=== PATIENT | female | born 1985 | race Caucasian/White ===

== ENCOUNTER 2017-03-10 05:29 | Inpatient (IN) | payer BC ==
[2017-03-10] MEDS ORDERED: Zolpidem Tartrate 5 MG TAB PO PRN ×2 (06:02→12:54)
[2017-03-10] MEDS ORDERED: Clindamycin/D5W 900 MG in Premix Bag 1 BAG IVPB SCH (06:02)
[2017-03-10] MEDS ORDERED: Promethazine HCl 25 MG/ML VIAL IM PRN ×3 (06:02→12:54)
[2017-03-10] MEDS ORDERED: Lactated Ringer's 1,000 ML IV SCH (06:02)
[2017-03-10] MEDS ORDERED: Bicitra 30 ML UDCUP PO SCH (06:02)
[2017-03-10] MEDS ORDERED: Ondansetron HCl/PF 4 MG/2 ML Vial IVP PRN ×3 (06:02→09:10)
[2017-03-10 06:27] LABS: Hematocrit 35.7 % (36.0-47.0); Mean Platelet Volume 10.4 fL (7.4-10.4); White Blood Cell (WBC) Count 11.3 thou/uL (4.8-10.8)
[2017-03-10 06:35] VITALS: BMI 29.1
[2017-03-10] MEDS ORDERED: Oxytocin 10 UNITS/ML VIAL ONE ×2 (07:13→08:43)
[2017-03-10] MEDS ORDERED: Ondansetron HCl/PF 4 MG/2 ML Vial ONE ×2 (07:13→14:16)
[2017-03-10] MEDS ORDERED: Dexamethasone 4 mg/ml Vial ONE (07:13)
[2017-03-10] MEDS ORDERED: Ketorolac Tromethamine 30 MG/ML VIAL ONE ×2 (07:13→14:16)
[2017-03-10] MEDS ORDERED: PHENYLEPHRINE-NS 100 MCG/ML 10 ML SYRINGE ONE ×2 (07:13→14:16)
[2017-03-10] MEDS ORDERED: Morphine PF 1 MG/ML SYR ONE (07:13)
[2017-03-10] MEDS ORDERED: ePHEDrine/0.9% NaCl/PF SYRINGE 50 mg/10 ml ONE ×2 (07:47→14:16)
[2017-03-10 08:41] LABS: CO2 Tension (PaCO2) 82.2 mmHg (44.0-56.0)
[2017-03-10] MEDS ORDERED: diphenhydrAMINE 50 MG/ML VIAL IVP PRN (09:10)
[2017-03-10] MEDS ORDERED: Naloxone HCl 0.4 mg/ml Vial IVP PRN ×2 (09:10)
[2017-03-10] MEDS ORDERED: HYDROmorphone 2 MG/ML VIAL SLOW IVP PRN (09:10)
[2017-03-10] MEDS ORDERED: Naloxone HCl 0.4 mg/ml Vial IV PRN (09:10)
[2017-03-10] MEDS ORDERED: Eucerin (Mineral Oil/Petrolatum,White) 30 gm Jar TOP PRN (09:10)
[2017-03-10] MEDS ORDERED: Meperidine HCl/PF 25 MG/ML VIAL SLOW IVP PRN (09:10)
[2017-03-10] MEDS ORDERED: Promethazine HCl 25 MG SUPP PR PRN (09:10)
[2017-03-10] MEDS ORDERED: [UNRECOGNIZED DRUG - REMARK] FS SCH (09:15)
[2017-03-10] MEDS ORDERED: Ketorolac Tromethamine 30 MG/ML VIAL IVP SCH (09:15)
[2017-03-10] MEDS ORDERED: Morphine 10 MG/ML VIAL SLOW IVP PRN (09:54)
[2017-03-10] MEDS ORDERED: diphenhydrAMINE 25 MG CAP PO PRN (12:54)
[2017-03-10] MEDS ORDERED: Lanolin Ointment 7 GM TUBE TOP PRN (12:54)
[2017-03-10] MEDS ORDERED: Adacel (T-DAP) 0.5 ML VIAL IM ONE (12:54)
[2017-03-10] MEDS ORDERED: LR / Pitocin 40 units/1000 ml 40 UNITS/1,000 ML BAG IV SCH (12:54)
[2017-03-10] MEDS ORDERED: Acetaminophen 325 MG TAB PO PRN (12:54)
[2017-03-10] MEDS ORDERED: Bisacodyl 10 MG SUPP PR PRN (12:54)
[2017-03-10] MEDS: Ondansetron HCl/PF 4 MG/2 ML Vial IVP PRN ×2 (13:17→17:43)
[2017-03-10] MEDS: Lactated Ringer's 1,000 ML IV SCH ×2 (13:23→21:46)
[2017-03-10] MEDS ORDERED: Dexamethasone 20 MG/5 ML VIAL ONE (14:16)
[2017-03-10] MEDS: Ketorolac Tromethamine 30 MG/ML VIAL IVP PRN ×2 (14:42→21:46)
[2017-03-10] MEDS: Ibuprofen 800 MG TAB PO SCH ×2 (14:56→22:15)
[2017-03-10] MEDS: Ferrous Sulfate 325 MG TAB PO SCH (17:42)
[2017-03-10] MEDS: Docusate Calcium (SURFAK) 240 MG CAP PO SCH (21:46)
[2017-03-11] MEDS: Ketorolac Tromethamine 30 MG/ML VIAL IVP PRN (03:11)
[2017-03-11 05:05] LABS: Hematocrit 29.6 % (36.0-47.0); Red Blood Cell (RBC) Count 2.94 mill/uL (4.20-5.40); White Blood Cell (WBC) Count 11.3 thou/uL (4.8-10.8)
[2017-03-11] MEDS: Ibuprofen 800 MG TAB PO SCH ×3 (07:03→21:40)
[2017-03-11] MEDS ORDERED: HYDROcodone/Acetaminophen 5/325 mg Tablet PO PRN (09:59)
[2017-03-11] MEDS: Ferrous Sulfate 325 MG TAB PO SCH ×2 (10:04→18:22)
[2017-03-11] MEDS: Docusate Calcium (SURFAK) 240 MG CAP PO SCH ×2 (10:04→21:40)
[2017-03-11] MEDS: HYDROcodone/Acetaminophen 5/325 mg Tablet PO PRN ×4 (10:06→23:16)
[2017-03-11] MEDS: Simethicone Chewable 80 MG TAB PO PRN ×2 (14:44→21:40)
[2017-03-12] MEDS: Simethicone Chewable 80 MG TAB PO PRN ×2 (03:13→13:48)
[2017-03-12] MEDS: HYDROcodone/Acetaminophen 5/325 mg Tablet PO PRN ×2 (03:14→13:50)
[2017-03-12] MEDS: Ibuprofen 800 MG TAB PO SCH ×2 (06:09→13:48)
[2017-03-12 08:45] VITALS: BP 123/83; TEMP 98.3
[2017-03-12] MEDS: Ferrous Sulfate 325 MG TAB PO SCH (09:02)
[2017-03-12] MEDS: Docusate Calcium (SURFAK) 240 MG CAP PO SCH (09:08)
--- NOTE | 2017-04-06 20:28 | OP ---
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 ATTENDING STAFF PHYSICIAN: Greg Selby M.D. SURGEON: Greg Selby M.D. [employer] SURGEON: Salome Bergeron M.D. PREOPERATIVE DIAGNOSES: 1. Term intrauterine at 39 weeks. 2. Prior . 3. Declines trial of labor. POSTOPERATIVE DIAGNOSES: 1. Term intrauterine at 39 weeks. 2. Prior . 3. Declines trial of labor. PROCEDURE: Repeat low transverse section. ANESTHESIA: Spinal catheterization. FINDINGS: 1. Vigorous female , 7 pounds 2 ounces, Apgars 9 and 9. 2. Surgically absent fallopian tubes. 3. Normal uterus and ovaries. COMPLICATIONS: None. BLOOD LOSS: 500 mL. PROCEDURE FOLLOWS: After thorough consent and counseling, Mrs. Vieira was taken to the operating room a nd adequate level of anesthesia was obtained by spinal catheterization. The patient was prepped and draped in the usual sterile fashion for abdominal surgery. A Stacy was placed in the bladder, which was noted to be draining clear urine. Attention was then turned to performing the repeat low transve rse section. A Pfannenstiel incision was made and the old scar was excised. The incision was carried sharply to t he fascia, which was also sharply incised. The midline was identified and the rectus muscles were re tracted laterally. The abdominal peritoneal cavity was entered with usual safeguards carried out. A retractor was placed and a bladder flap was created on the vesicouterine peritoneum. A bladder blad e was then placed. A low transverse incision was made on the well-developed uterus. Upon entering t he amniotic sac, a small amount of clear amniotic fluid was visualized. The was noted to be v ertex presentation in the occiput anterior position, still high in the pelvis. Head was delivered an d baby was bulb suctioned on the abdomen. Shoulders and body were then delivered in an atraumatic fa shion. The cord was doubly clamped, cut, and the infant was handed to the neonatology team in [facility] for delivery. The infant was a vigorous viable female, weighing 7 pounds 2 ounces, Apgars of 9 and 9 obtained 1 and 5 minutes respectively. Cord blood was obtained. The placenta was manually rem nori from the uterus. The uterus was exteriorized and good tone was noted. The uterine cavity was c leared of any remaining clot and fluid. The low transverse incision was closed with a running lockin g ligature of #1 chromic. A second imbricating layer was placed to facilitate strength and hemostasi s. The vesicouterine peritoneum was closed with a running ligature of 3-0 Monocryl suture. The post erior cul-de-sac and gutters were then cleared of clot and fluid. The ovaries and uterus appeared no rmal. The fallopian tubes were surgically absent. Seprafilm was applied to the low transverse incis ion and to the anterior aspect of the uterus for adhesion prevention. The uterus was returned to the abdomen and good tone and hemostasis was appreciated. Lap, sponge, and needle counts were correct. The peritoneum was closed with a running ligature of 2-0 Vicryl. The rectus muscles were reapproxim ated in midline with interrupted ligatures of 2-0 Vicryl and #1 chromic. The fascia was then closed with 2 ligatures of 0 Vicryl suture, which were tied in the midline. Good fascial integrity was appr eciated. The incision was irrigated with copious amount of warm normal saline. The subcutaneous tis lissett was closed with interrupted ligatures of 2-0 plain suture. The skin was then closed with a subcu ticular stitch of 4-0 Monocryl. Dermabond was then applied to the incision. Incision was then close d with a 4-0 subcuticular stitch of 4-0 Monocryl. Dermabond was then applied to the incision. A pre ssure dressing and ice packs were subsequently placed. Lap, sponge, and needle counts correct x3, bl ood loss during the surgical procedure was approximately 500 mL. Immediately following surgery, the patient and family were made aware of the surgical procedure and o perative findings. Questions answered to their satisfaction.
== END 2017-03-12 15:15 | disposition home or self-care (01) | DRG 765 ==
LOC: L&D 05:29 → 3SW 12:14 → EDSTATUS 15:44
PROVIDERS: ADMIT Obstetrics & Gynecology; ATTEND Obstetrics & Gynecology
PROC: 10D00Z1 Extraction of Products of Conception, Low, Open Approach (ICD-10-PCS; principal; 2017-03-10)
PROC: 3E0334Z Introduction of Serum, Toxoid and Vaccine into Peripheral Vein, Percutaneous Approach (ICD-10-PCS; 2017-03-10)
DX: O34.211 Maternal care for low transverse scar from previous cesarean delivery (principal); O36.0930 Maternal care for other rhesus isoimmunization, third trimester, not applicable or unspecified; N85.8 Other specified noninflammatory disorders of uterus; Z37.0 Single live birth; Z3A.39 39 weeks gestation of pregnancy; O69.81X0 Labor and delivery complicated by cord around neck, without compression, not applicable or unspecified
CPT/HCPCS: 36415; 82805; 85027; 85461; 86780; 86850; 86870; 86900; 86901; 87340; 90384; 96372; J0131; J1100; J1885; J2274; J2405; J2590; J3490